=== PATIENT | male | born 1990 | race Two or more races ===

== ENCOUNTER 2020-11-07 15:21 | Emergency (ER) | payer MEDICAID, OTHER ==
[~2020-11-07] VITALS: Ht 177.8 cm; Wt 88.6 kg
[2020-11-07 15:24] VITALS: BP 134/70
== END 2020-11-07 17:02 | disposition home or self-care (01) ==
LOC: ER 15:23
DX: R55 Syncope and collapse (principal); F12.90 Cannabis use, unspecified, uncomplicated; Z91.030 Bee allergy status
CPT/HCPCS: 93005; 99283